=== PATIENT | male | born 1945 | race Two or more races ===

== ENCOUNTER 2021-08-12 13:43 | Inpatient (IN) | payer OTHER ==
[2021-08-12] MEDS ORDERED: ACETAMINOPHEN 500 MG TABLET (FP) PO ONE (14:39)
[2021-08-12] MEDS ORDERED: ACETAMINOPHEN 325 MG TABLET (FP) ONE (14:51)
[2021-08-12] MEDS ORDERED: morphine CARPU-JECT 2 MG/1 ML DISP.SYRIN IVPUSH ONE (15:58)
[2021-08-12 16:04] LABS: BASO % 0.5 % (0-2.0); EOS % 2.4 % (0-4.5); HEMATOCRIT 33.1 % (35.4-49); HEMOGLOBIN 10.5 GM/dL (11.7-16.9); LYMPH % 11.7 % (8-40); MCHC 31.7 g/dl (32.0-35.9); MEAN CELL VOLUME 69.4 fl (80-96); MEAN PLT VOLUME 7.8 fl (7.5-11.1); NEUT % 79.4 % (42.8-82.8); PLATELET COUNT 204 10^3/uL (134-434); RBC 4.77 M/mm3 (4.00-5.60); RDW 16.1 % (11.9-15.9); WHITE BLOOD COUNT 10.7 K/mm3 (4.0-10.0)
[2021-08-12] MEDS ORDERED: morphine SULFATE 4 MG/ML VIAL ONE (16:05)
[2021-08-12 16:13] LABS: INR 1.17 (0.83-1.09); PROTHROMBIN TIME (PATIENT) 13.1 SEC (9.7-13.0)
[2021-08-12 16:16] LABS: ACTIVATED PTT 30.8 SECONDS (25.2-36.5)
[2021-08-12 16:39] LABS: ANISOCYTOSIS 1+; MACROCYTOSIS 0; PLATELET ESTIMATE NORMAL
[2021-08-12 16:53] LABS: CHLORIDE 108 mmol/L (98-107); SODIUM 133 mmol/L (136-145)
[2021-08-12 16:55] LABS: ALBUMIN 2.9 g/dl (3.4-5.0); BLOOD UREA NITROGEN 36.3 mg/dL (7-18); CO2 22 mmol/L (21-32); GLUCOSE,RANDOM 294 mg/dL (74-106)
[2021-08-12 16:58] LABS: CREATININE 1.5 mg/dL (0.55-1.3); SGOT/AST 187 U/L (15-37)
[2021-08-12 17:00] LABS: BILIRUBIN,TOTAL 0.5 mg/dL (0.2-1); TOT PROT 7.7 g/dl (6.4-8.2)
[2021-08-12 17:01] LABS: ALK PHOS 108 U/L (45-117)
[2021-08-12] MEDS ORDERED: ACETAMINOPHEN 325 MG TABLET (FP) PO PRN (18:06)
[2021-08-12] MEDS ORDERED: morphine SULFATE 4 MG/ML VIAL IVPUSH PRN (18:06)
[2021-08-12 18:09] LABS: ANION GAP 3 MMOL/L (8-16); SGPT/ALT 38 U/L (13-61)
[2021-08-12] MEDS ORDERED: ATORVASTATIN CA 20 MG TABLET (FP) ONE (22:16)
[2021-08-12] MEDS ORDERED: levETIRAcetam 500 MG TABLET (FP) PO ONE (22:17)
[2021-08-12] MEDS ORDERED: CARVEDILOL 3.125 MG TABLET (FP) ONE (22:17)
[2021-08-12 22:19] LABS: CALCIUM 8.2 mg/dL (8.5-10.1)
[2021-08-12 22:20] LABS: BLOOD UREA NITROGEN 39.5 mg/dL (7-18)
[2021-08-12] MEDS: ATORVASTATIN CA 20 MG TABLET (FP) PO SCH (22:22)
[2021-08-12] MEDS: levETIRAcetam 500 MG TABLET (FP) PO SCH (22:22)
[2021-08-12] MEDS: CARVEDILOL 6.25 MG TABLET (FP) PO SCH (22:22)
[2021-08-12 22:23] LABS: CREATININE 1.5 mg/dL (0.55-1.3)
[2021-08-12] MEDS: INSULIN SLIDING SCALE (NOVOLOG) 1 VIAL SQ SCH (22:23)
[2021-08-12] MEDS: INSULIN (LEVEMIR) 100 UNITS/ML UNITS SQ SCH (22:27)
[2021-08-13 07:15] LABS: HEMATOCRIT 32.2 % (35.4-49); MCHC 31.1 g/dl (32.0-35.9); MEAN CELL VOLUME 70.9 fl (80-96); MEAN PLT VOLUME 7.9 fl (7.5-11.1); PLATELET COUNT 185 10^3/uL (134-434); RBC 4.54 M/mm3 (4.00-5.60); RDW 16.2 % (11.9-15.9); WHITE BLOOD COUNT 11.6 K/mm3 (4.0-10.0)
[2021-08-13 07:35] LABS: CHLORIDE 112 mmol/L (98-107); SODIUM 140 mmol/L (136-145)
[2021-08-13 07:41] LABS: ANION GAP 7 MMOL/L (8-16); BLOOD UREA NITROGEN 40.4 mg/dL (7-18); CALCIUM 8.2 mg/dL (8.5-10.1); CO2 21 mmol/L (21-32)
[2021-08-13 07:42] LABS: ALBUMIN 2.9 g/dl (3.4-5.0); GLUCOSE,RANDOM 169 mg/dL (74-106)
[2021-08-13 07:44] LABS: CREATININE 1.5 mg/dL (0.55-1.3); SGPT/ALT 18 U/L (13-61)
[2021-08-13 07:45] LABS: SGOT/AST 15 U/L (15-37)
[2021-08-13 07:46] LABS: BILIRUBIN,TOTAL 0.4 mg/dL (0.2-1); TOT PROT 6.6 g/dl (6.4-8.2)
[2021-08-13 07:47] LABS: ALK PHOS 95 U/L (45-117)
[2021-08-13] MEDS: LISINOPRIL 20 MG TABLET PO SCH (11:00)
[2021-08-13] MEDS: ASPIRIN COATED 81 MG TABLET.EC PO SCH (11:00)
[2021-08-13] MEDS: levETIRAcetam 500 MG TABLET (FP) PO SCH ×2 (11:00→21:41)
[2021-08-13] MEDS: SERTRALINE HCL 50 MG TABLET (FP) PO SCH (11:00)
[2021-08-13] MEDS: TAMSULOSIN HCL 0.4 MG CAP PO SCH (11:00)
[2021-08-13] MEDS: CARVEDILOL 6.25 MG TABLET (FP) PO SCH ×2 (11:00→21:41)
[2021-08-13] MEDS: CLOPIDOGREL BISULFATE 75 MG TABLET (FP) PO SCH (11:00)
[2021-08-13] MEDS ORDERED: ASPIRIN COATED 81 MG TABLET.EC ONE (11:12)
[2021-08-13] MEDS ORDERED: levETIRAcetam 500 MG TABLET (FP) PO ONE ×2 (11:13→21:30)
[2021-08-13] MEDS ORDERED: sitaGLIPtin PHOSPHATE 50 MG TABLET ONE (11:13)
[2021-08-13] MEDS ORDERED: LISINOPRIL 20 MG TABLET ONE (11:13)
[2021-08-13] MEDS ORDERED: TAMSULOSIN HCL 0.4 MG CAP ONE (11:13)
[2021-08-13] MEDS ORDERED: SERTRALINE HCL 50 MG TABLET (FP) ONE (11:13)
[2021-08-13] MEDS ORDERED: INSULIN SLIDING SCALE (NOVOLOG) 1 VIAL SQ ONE ×3 (11:19→21:31)
[2021-08-13] MEDS: INSULIN SLIDING SCALE (NOVOLOG) 1 VIAL SQ SCH ×4 (11:56→21:41)
[2021-08-13] MEDS ORDERED: CLOPIDOGREL BISULFATE 75 MG TABLET (FP) ONE (13:14)
[2021-08-13 15:19] LABS: CHOLESTEROL 112 mg/dL (50-200)
[2021-08-13 15:20] LABS: TRIGLYCERIDES 123 mg/dL (0-150)
[2021-08-13 15:21] LABS: LDL CHOLESTEROL (ONLY SJRH) 63 mg/dL (5-100)
[2021-08-13 15:22] LABS: HDL CHOLESTEROL 33 mg/dL (40-60)
[2021-08-13 15:23] LABS: N-TERMINAL BNP 201.6 pg/ml (5-450)
[2021-08-13] MEDS ORDERED: ATORVASTATIN CA 20 MG TABLET (FP) ONE (21:30)
[2021-08-13] MEDS ORDERED: CARVEDILOL 3.125 MG TABLET (FP) ONE (21:30)
[2021-08-13] MEDS ORDERED: INSULIN (LEVEMIR) 100 UNITS/ML UNITS SQ ONE (21:31)
[2021-08-13] MEDS: ATORVASTATIN CA 20 MG TABLET (FP) PO SCH (21:41)
[2021-08-13] MEDS: INSULIN (LEVEMIR) 100 UNITS/ML UNITS SQ SCH (21:41)
[2021-08-13 23:54] VITALS: BMI 25.2
[2021-08-14] MEDS: INSULIN SLIDING SCALE (NOVOLOG) 1 VIAL SQ SCH ×4 (06:06→21:42)
[2021-08-14] MEDS: TAMSULOSIN HCL 0.4 MG CAP PO SCH (10:12)
[2021-08-14] MEDS: LISINOPRIL 20 MG TABLET PO SCH (10:12)
[2021-08-14] MEDS: ASPIRIN COATED 81 MG TABLET.EC PO SCH (10:12)
[2021-08-14] MEDS: levETIRAcetam 500 MG TABLET (FP) PO SCH ×2 (10:13→21:32)
[2021-08-14] MEDS: CARVEDILOL 6.25 MG TABLET (FP) PO SCH ×2 (10:13→21:32)
[2021-08-14] MEDS: CLOPIDOGREL BISULFATE 75 MG TABLET (FP) PO SCH (10:13)
[2021-08-14] MEDS: SERTRALINE HCL 50 MG TABLET (FP) PO SCH (10:13)
[2021-08-14] MEDS ORDERED: morphine SULFATE 4 MG/ML VIAL IVPUSH PRN (20:22)
[2021-08-14] MEDS: ATORVASTATIN CA 20 MG TABLET (FP) PO SCH (21:32)
[2021-08-14] MEDS: INSULIN (LEVEMIR) 100 UNITS/ML UNITS SQ SCH (21:40)
[2021-08-15] MEDS: INSULIN SLIDING SCALE (NOVOLOG) 1 VIAL SQ SCH ×4 (06:27→21:21)
[2021-08-15] MEDS: ACETAMINOPHEN 325 MG TABLET (FP) PO PRN ×2 (06:31→21:26)
[2021-08-15] MEDS: levETIRAcetam 500 MG TABLET (FP) PO SCH ×2 (09:07→21:19)
[2021-08-15] MEDS: TAMSULOSIN HCL 0.4 MG CAP PO SCH (09:07)
[2021-08-15] MEDS: LISINOPRIL 20 MG TABLET PO SCH (09:07)
[2021-08-15] MEDS: ASPIRIN COATED 81 MG TABLET.EC PO SCH (09:07)
[2021-08-15] MEDS: SERTRALINE HCL 50 MG TABLET (FP) PO SCH (09:07)
[2021-08-15] MEDS: CLOPIDOGREL BISULFATE 75 MG TABLET (FP) PO SCH (09:07)
[2021-08-15] MEDS: CARVEDILOL 6.25 MG TABLET (FP) PO SCH ×2 (09:07→21:18)
[2021-08-15] MEDS: ATORVASTATIN CA 20 MG TABLET (FP) PO SCH (21:19)
[2021-08-15] MEDS: INSULIN (LEVEMIR) 100 UNITS/ML UNITS SQ SCH (21:20)
[2021-08-16] MEDS: INSULIN SLIDING SCALE (NOVOLOG) 1 VIAL SQ SCH ×4 (06:09→21:07)
[2021-08-16] MEDS: TAMSULOSIN HCL 0.4 MG CAP PO SCH (08:04)
[2021-08-16] MEDS: levETIRAcetam 500 MG TABLET (FP) PO SCH ×2 (09:42→21:00)
[2021-08-16] MEDS: LISINOPRIL 20 MG TABLET PO SCH (09:43)
[2021-08-16] MEDS: CLOPIDOGREL BISULFATE 75 MG TABLET (FP) PO SCH (09:43)
[2021-08-16] MEDS: ASPIRIN COATED 81 MG TABLET.EC PO SCH (09:43)
[2021-08-16] MEDS: CARVEDILOL 6.25 MG TABLET (FP) PO SCH ×2 (09:44→21:00)
[2021-08-16] MEDS: SERTRALINE HCL 50 MG TABLET (FP) PO SCH (09:44)
[2021-08-16] MEDS ORDERED: INSULIN (NOVOLOG) ASPART 100 UNITS/ML 10ML VIAL ONE ×2 (11:48→21:06)
[2021-08-16] MEDS: ACETAMINOPHEN 325 MG TABLET (FP) PO PRN (21:00)
[2021-08-16] MEDS: ATORVASTATIN CA 20 MG TABLET (FP) PO SCH (21:00)
[2021-08-16] MEDS: INSULIN (LEVEMIR) 100 UNITS/ML UNITS SQ SCH (21:04)
[2021-08-17] MEDS: INSULIN SLIDING SCALE (NOVOLOG) 1 VIAL SQ SCH ×4 (06:43→22:10)
[2021-08-17] MEDS ORDERED: INSULIN (NOVOLOG) ASPART 100 UNITS/ML 10ML VIAL ONE ×2 (06:55→11:41)
[2021-08-17] MEDS: LISINOPRIL 20 MG TABLET PO SCH (10:08)
[2021-08-17] MEDS: ASPIRIN COATED 81 MG TABLET.EC PO SCH (10:08)
[2021-08-17] MEDS: levETIRAcetam 500 MG TABLET (FP) PO SCH ×2 (10:08→22:08)
[2021-08-17] MEDS: CARVEDILOL 6.25 MG TABLET (FP) PO SCH ×2 (10:08→22:09)
[2021-08-17] MEDS: CLOPIDOGREL BISULFATE 75 MG TABLET (FP) PO SCH (10:08)
[2021-08-17] MEDS: SERTRALINE HCL 50 MG TABLET (FP) PO SCH (10:08)
[2021-08-17] MEDS: ACETAMINOPHEN 325 MG TABLET (FP) PO PRN (10:08)
[2021-08-17] MEDS: TAMSULOSIN HCL 0.4 MG CAP PO SCH (10:08)
[2021-08-17] MEDS: ATORVASTATIN CA 20 MG TABLET (FP) PO SCH (22:10)
[2021-08-17] MEDS: INSULIN (LEVEMIR) 100 UNITS/ML UNITS SQ SCH (22:11)
[2021-08-18] MEDS: INSULIN SLIDING SCALE (NOVOLOG) 1 VIAL SQ SCH ×4 (06:11→22:42)
[2021-08-18] MEDS: CLOPIDOGREL BISULFATE 75 MG TABLET (FP) PO SCH (09:57)
[2021-08-18] MEDS: SERTRALINE HCL 50 MG TABLET (FP) PO SCH (09:57)
[2021-08-18] MEDS: levETIRAcetam 500 MG TABLET (FP) PO SCH ×2 (09:57→22:41)
[2021-08-18] MEDS: LISINOPRIL 20 MG TABLET PO SCH (09:57)
[2021-08-18] MEDS: TAMSULOSIN HCL 0.4 MG CAP PO SCH (09:57)
[2021-08-18] MEDS: CARVEDILOL 6.25 MG TABLET (FP) PO SCH ×2 (09:57→22:41)
[2021-08-18] MEDS: ASPIRIN COATED 81 MG TABLET.EC PO SCH (09:57)
[2021-08-18] MEDS ORDERED: INSULIN (NOVOLOG) ASPART 100 UNITS/ML 10ML VIAL ONE (11:17)
[2021-08-18] MEDS: ATORVASTATIN CA 20 MG TABLET (FP) PO SCH (22:41)
[2021-08-18] MEDS: INSULIN (LEVEMIR) 100 UNITS/ML UNITS SQ SCH (22:42)
[2021-08-19] MEDS: INSULIN SLIDING SCALE (NOVOLOG) 1 VIAL SQ SCH ×4 (07:02→22:23)
[2021-08-19] MEDS: SERTRALINE HCL 50 MG TABLET (FP) PO SCH (09:25)
[2021-08-19] MEDS: levETIRAcetam 500 MG TABLET (FP) PO SCH ×2 (09:25→22:21)
[2021-08-19] MEDS: CLOPIDOGREL BISULFATE 75 MG TABLET (FP) PO SCH (09:25)
[2021-08-19] MEDS: CARVEDILOL 6.25 MG TABLET (FP) PO SCH ×2 (09:25→22:21)
[2021-08-19] MEDS: TAMSULOSIN HCL 0.4 MG CAP PO SCH (09:25)
[2021-08-19] MEDS: ASPIRIN COATED 81 MG TABLET.EC PO SCH (09:25)
[2021-08-19] MEDS: LISINOPRIL 20 MG TABLET PO SCH (09:25)
[2021-08-19] MEDS: ACETAMINOPHEN 325 MG TABLET (FP) PO PRN (09:26)
[2021-08-19] MEDS ORDERED: INSULIN (NOVOLOG) ASPART 100 UNITS/ML 10ML VIAL ONE ×2 (11:31→22:16)
[2021-08-19] MEDS: ATORVASTATIN CA 20 MG TABLET (FP) PO SCH (22:21)
[2021-08-19] MEDS: INSULIN (LEVEMIR) 100 UNITS/ML UNITS SQ SCH (22:23)
[2021-08-20] MEDS: INSULIN SLIDING SCALE (NOVOLOG) 1 VIAL SQ SCH ×2 (06:14→11:31)
[2021-08-20] MEDS: TAMSULOSIN HCL 0.4 MG CAP PO SCH (10:46)
[2021-08-20] MEDS: levETIRAcetam 500 MG TABLET (FP) PO SCH (10:46)
[2021-08-20] MEDS: ASPIRIN COATED 81 MG TABLET.EC PO SCH (10:46)
[2021-08-20] MEDS: LISINOPRIL 20 MG TABLET PO SCH (10:46)
[2021-08-20] MEDS: SERTRALINE HCL 50 MG TABLET (FP) PO SCH (10:46)
[2021-08-20] MEDS: CLOPIDOGREL BISULFATE 75 MG TABLET (FP) PO SCH (10:46)
[2021-08-20] MEDS: CARVEDILOL 6.25 MG TABLET (FP) PO SCH (10:47)
[2021-08-20 19:04] VITALS: BP 141/76; PULSE 71; TEMP 97.5
== END 2021-08-20 17:35 | DRG 101 ==
LOC: JER 13:43 → JERBED 17:14 → J6S 08-13 22:04
PROVIDERS: ADMIT Internal Medicine; ATTEND Internal Medicine
DX: G40.909 Epilepsy, unspecified, not intractable, without status epilepticus (principal); S42.291A Other displaced fracture of upper end of right humerus, initial encounter for closed fracture; I10 Essential (primary) hypertension; E78.5 Hyperlipidemia, unspecified; R55 Syncope and collapse; I25.2 Old myocardial infarction; F41.9 Anxiety disorder, unspecified; I25.10 Atherosclerotic heart disease of native coronary artery without angina pectoris; F32.A Depression, unspecified; Z86.73 Personal history of transient ischemic attack (TIA), and cerebral infarction without residual deficits; W19.XXXA Unspecified fall, initial encounter; Y93.89 Activity, other specified; Y92.89 Other specified places as the place of occurrence of the external cause; Y99.8 Other external cause status
CPT/HCPCS: 36415; 70450-TC; 70551-TC; 73030-TC-RT-FY; 80048; 80053; 80061; 82550; 82553; 82962; 83036; 83880; 84443; 84484; 85025; 85027; 85610; 85730; 86850; 86900; 86901; 93005; 93010; 93306-TC; 97116-GP; 97162-GP; 99285-25; C9803; U0003; U0005

== ENCOUNTER 2022-03-21 04:35 | Day surgery (SDC) | payer OTHER ==
[2022-03-20 17:33] VITALS: BMI 25.8
[~2022-03-21 04:35] MED LIST: ACETAMINOPHEN 325 MG TABLET (FP) PO PRN; PHENYLEPHRINE 2.5% OPHTH SOLN 15 ML BOTTLE OP SCH
[2022-03-21] MEDS ORDERED: BUPIVACAINE HCL/PF 0.75% 10 ML VIAL ONE (07:35)
[2022-03-21] MEDS ORDERED: TETRACAINE 0.5% OPHTH SOLN 2 ML BOTTLE ONE (07:35)
[2022-03-21] MEDS ORDERED: POVIDONE-IODINE 5% OPHTHALMIC PREP 30 ML SOLUTION ONE (07:35)
[2022-03-21] MEDS ORDERED: KETOROLAC TROMETHAMINE 0.5% EYE DROP 1 DROP DROPS ONE (10:51)
[2022-03-21] MEDS ORDERED: OFLOXACIN 0.3% OPHTHALMIC SOLUTION 5 ML BOTTLE ONE (10:52)
[2022-03-21] MEDS ORDERED: CYCLOPENTOLATE HCL 1% OPHTH SOLN 2 ML BOTTLE ONE (10:52)
[2022-03-21] MEDS ORDERED: TROPICAMIDE 1% OPHTH SOLN 15 ML BOTTLE ONE (10:52)
[2022-03-21] MEDS: OFLOXACIN 0.3% OPHTHALMIC SOLUTION 5 ML BOTTLE OP SCH ×2 (10:54→10:59)
[2022-03-21] MEDS: CYCLOPENTOLATE HCL 1% OPHTH SOLN 2 ML BOTTLE OP SCH ×2 (10:54→10:59)
[2022-03-21] MEDS: TROPICAMIDE 1% OPHTH SOLN 15 ML BOTTLE OP SCH ×2 (10:54→10:59)
[2022-03-21] MEDS: PHENYLEPHRINE 2.5% OPTHALMIC DROP BOTTLE ONE ×2 (10:54→10:59)
[2022-03-21] MEDS: KETOROLAC TROMETHAMINE 0.5% EYE DROP 1 DROP DROPS OP SCH ×2 (10:54→10:59)
[2022-03-21] MEDS ORDERED: LIDOCAINE HCL/PF 2% SDV 5ML VIAL INF ONE (11:42)
[2022-03-21] MEDS ORDERED: BUPIVACAINE HCL/PF 0.75% 10 ML VIAL NR ONE (11:42)
[2022-03-21] MEDS ORDERED: POVIDONE-IODINE 5% OPHTHALMIC PREP 30 ML SOLUTION OS ONE (11:44)
[2022-03-21] MEDS ORDERED: BSS (NA/CA/MG/K) BALANCED SALT SOLUTION OPHTH SOLN 15 ML BOTTLE IO ONE (11:50)
[2022-03-21] MEDS ORDERED: LIDOCAINE HCL 1% PRESERVATIVE FREE - 30ML VIAL IO ONE (11:52)
[2022-03-21] MEDS ORDERED: TRYPAN BLUE 0.5 ML DISP.SYRIN IO ONE (11:53)
[2022-03-21] MEDS ORDERED: CHONDROITIN SU A/HYALUR SOD 1 KIT IO ONE (11:53)
[2022-03-21] MEDS ORDERED: PHENYLEPHRINE/KETOROLAC 4 ML VIAL IO ONE (11:57)
[2022-03-21 13:21] VITALS: BP 109/55; PULSE 69; TEMP 98
== END 2022-03-21 13:40 | disposition home or self-care (01) ==
LOC: JASU-SURG 04:35
PROVIDERS: ATTEND Ophthalmology
PROC: 08RK3JZ Replacement of Left Lens with Synthetic Substitute, Percutaneous Approach (ICD-10-PCS; principal; 2022-03-21 10:00)
DX: H26.9 Unspecified cataract (principal); H18.49 Other corneal degeneration; E11.9 Type 2 diabetes mellitus without complications; I10 Essential (primary) hypertension
CPT/HCPCS: 82962; C9803-CS; J1097; U0003; U0005

== ENCOUNTER 2022-06-20 05:18 | Day surgery (SDC) | payer OTHER ==
[2022-06-15 13:07] VITALS: BMI 25.3
[~2022-06-20 05:18] MED LIST changes: -PHENYLEPHRINE 2.5% OPHTH SOLN 15 ML BOTTLE OP SCH
[2022-06-20] MEDS ORDERED: BUPIVACAINE HCL/PF 0.75% 10 ML VIAL ONE (07:25)
[2022-06-20] MEDS ORDERED: LIDOCAINE HCL/PF 1% SDV 5ML VIAL ONE (07:26)
[2022-06-20] MEDS ORDERED: TRYPAN BLUE 0.5 ML DISP.SYRIN ONE (07:26)
[2022-06-20] MEDS ORDERED: BSS (NA/CA/MG/K) BALANCED SALT SOLUTION OPHTH SOLN 15 ML BOTTLE ONE (07:26)
[2022-06-20] MEDS ORDERED: POVIDONE-IODINE 5% OPHTHALMIC PREP 30 ML SOLUTION ONE (07:26)
[2022-06-20] MEDS ORDERED: LIDOCAINE HCL/PF 2% SDV 5ML VIAL ONE (07:26)
[2022-06-20] MEDS ORDERED: CYCLOPENTOLATE HCL 1% OPHTH SOLN 2 ML BOTTLE ONE (10:21)
[2022-06-20] MEDS ORDERED: CIPROFLOXACIN HCL 0.3% OPHTH 2.5ML BOTTLE ONE (10:21)
[2022-06-20] MEDS ORDERED: TROPICAMIDE 1% OPHTH SOLN 15 ML BOTTLE ONE (10:21)
[2022-06-20] MEDS ORDERED: DICLOFENAC SODIUM 0.1% OPHTHALMIC 2.5ML BOTTLE ONE (10:21)
[2022-06-20] MEDS ORDERED: PHENYLEPHRINE 2.5% OPTHALMIC DROP BOTTLE ONE (10:23)
[2022-06-20] MEDS ORDERED: OFLOXACIN 0.3% OPHTHALMIC SOLUTION 5 ML BOTTLE ONE (10:27)
[2022-06-20] MEDS ORDERED: KETOROLAC TROMETHAMINE 0.5% EYE DROP 1 DROP DROPS ONE (10:27)
[2022-06-20] MEDS: TROPICAMIDE 1% OPHTH SOLN 15 ML BOTTLE OP SCH ×3 (10:30→10:40)
[2022-06-20] MEDS: PHENYLEPHRINE 2.5% OPHTH SOLN 15 ML BOTTLE OP SCH ×3 (10:30→10:40)
[2022-06-20] MEDS: OFLOXACIN 0.3% OPHTHALMIC SOLUTION 5 ML BOTTLE OP SCH ×3 (10:30→10:40)
[2022-06-20] MEDS: CYCLOPENTOLATE HCL 1% OPHTH SOLN 2 ML BOTTLE OP SCH ×3 (10:30→10:40)
[2022-06-20] MEDS: KETOROLAC TROMETHAMINE 0.5% EYE DROP 1 DROP DROPS OP SCH ×3 (10:30→10:40)
[2022-06-20] MEDS ORDERED: MIDAZOLAM HCL 2 MG/2 ML SINGLE DOSE VIAL ONE (10:52)
[2022-06-20] MEDS ORDERED: PROPOFOL 20 ML ONE (11:12)
[2022-06-20] MEDS ORDERED: LIDOCAINE HCL/PF 2% SDV 5ML VIAL INF ONE (11:18)
[2022-06-20] MEDS ORDERED: BUPIVACAINE HCL/PF 0.75% 10 ML VIAL NR ONE (11:18)
[2022-06-20] MEDS ORDERED: POVIDONE-IODINE 5% OPHTHALMIC PREP 30 ML SOLUTION OD ONE (11:19)
[2022-06-20] MEDS ORDERED: CHONDROITIN SU A/HYALUR SOD 1 KIT IO ONE (11:29)
[2022-06-20] MEDS ORDERED: LIDOCAINE HCL 1% PRESERVATIVE FREE - 30ML VIAL IO ONE (11:29)
[2022-06-20] MEDS ORDERED: TRYPAN BLUE 0.5 ML DISP.SYRIN IO ONE (11:29)
[2022-06-20] MEDS ORDERED: PHENYLEPHRINE/KETOROLAC 4 ML VIAL IO ONE (11:32)
[2022-06-20 12:21] VITALS: RESP 18
[2022-06-20 15:55] VITALS: BP 111/58; PULSE 67; TEMP 97.3
== END 2022-06-20 13:00 | disposition home or self-care (01) ==
LOC: JASU-SURG 05:18
PROVIDERS: ATTEND Ophthalmology
PROC: 08RJ3JZ Replacement of Right Lens with Synthetic Substitute, Percutaneous Approach (ICD-10-PCS; principal; 2022-06-20 10:00)
DX: H26.9 Unspecified cataract (principal); E11.9 Type 2 diabetes mellitus without complications; I10 Essential (primary) hypertension
CPT/HCPCS: 82962; J1097